=== PATIENT | female | born 1960 | race Caucasian/White ===

== ENCOUNTER 2018-05-01 12:25 | Emergency (ER) | payer OTHER ==
[2018-05-01] MEDS ORDERED: ETOMIDATE 20 MG/10 ML VIAL IV ONE (12:26)
[2018-05-01] MEDS ORDERED: AMIODARONE HCL 150 MG/3 ML INJ IV ONE (12:26)
[2018-05-01] MEDS ORDERED: LIDOCAINE 2% MPF 5 ML VIAL IV ONE (12:26)
[2018-05-01] MEDS ORDERED: Nicardipine/NS 25 MG/250 ML KIT IV ONE (12:40)
[2018-05-01 12:49] LABS: Absolute Lymphocytes (CBC) 5.5 K/uL (0.7-4.9); Absolute Monocytes 0.6 K/uL (0.1-1.3); Absolute Neutrophil 3.1 K/uL (1.8-8.0); Basophils % 0.8 % (0-1.3); Eosinophils % 1.2 % (0-4.4); Hematocrit 44.1 % (36.0-45.0); MCH 33.2 pg (27.0-35.0); MCV 95.9 fL (80-100); MPV 11.3 fL (7.6-11.3); Monocytes % 5.9 % (3.3-12.3)
--- NOTE | 2018-05-01 12:49 | RAD REPORT ---
EXAM DESCRIPTION: CT - Ct Stroke Brain Wo Cont - 05/01/2018 12:41 pm CLINICAL HISTORY: unresponsive<Reason For Exam>unresponsive Code stroke patient, unresponsive, intubated TECHNIQUE: Axial 5 millimeter thick images of the head were obtained without IV contrast. All CT scans are performed using dose optimization technique as appropriate and may include automated exposure control or mA/KV adjustment according to patient size. FINDINGS: A massive amount of acute subarachnoid hemorrhages present. There is a 2 centimeter focal hematoma along the medial margin of the right temporal lobe that could be intraparenchymal or part of hematoma related to aneurysm rupture. There is a very large amount of intraventricular blood present . Early obstructive changes are present with casting of the left lateral ventricle. The third ventric le and fourth ventricle are filled with blood. Basilar cisterns are all filled with subarachnoid hemo rrhage. Visualized portions of the mastoid air cells, paranasal sinuses, and orbits are unremarkable. Findings telephoned to the referring clinician 12:45 p.m.. IMPRESSION: Massive volume of acute subarachnoid hemorrhage. Large volume of intraventricular blood with early obstructive change.
[2018-05-01 12:55] LABS: Protime INR 1.31
--- NOTE | 2018-05-01 12:59 | EDPHYS ---
Physician Documentation [facility] Name: Lisa French Age: 57 yrs Sex: Female : 1960 Arrival Date: 05/01/2018 Time: 12:26 Bed 3 Private MD: ED Physician Mitchel Torre HPI: 05/01 12:42 This 57 yrs old Female presents to ER via Unassigned with complaints of rn unresponsive. 12:42 Onset: The symptoms/episode began/occurred at an unknown time. Associated signs and rn symptoms: Pertinent positives:. It is unknown whether or not the patient has had similar symptoms in the past. Per EMS and , patient fine earlier in day, went into bathroom, complained of SHAH behind right eye, cried for help, went to her, was unresponsive, per EMS, extremely hypertensive, but unresponsive. . Historical: - Allergies: 13:44 NONE; ss - Home Meds: 13:44 None [Active]; ss - PMHx: 13:44 Cirrhosis; Hepatitis; ss - PSHx: 13:44 Appendectomy; Cholecystectomy; Tubal ligation; liver biopsy; ss - Immunization history:: Adult Immunizations unknown. - Social history:: Smoking status: unknown. - Ebola Screening: : Unable to complete screening because. - Unable to obtain history due to: unresponsive. ROS: 12:42 Unable to obtain ROS due to altered mental status, obtunded state. rn Exam: 12:42 Constitutional: This is a well developed, well nourished patient, unresponsive, even rn to pain Head/Face: Normocephalic, atraumatic. Eyes: pupils 5mm, minimally reactive, equal Cardiovascular: tachycardic, regular, no murmur Respiratory: coarse bilateral breath sounds Abdomen/GI: soft, non-tender MS/ Extremity: Pulses equal, no cyanosis. Neuro: GCS 3, flaccid LUE/LLE/RLE, some tone in RUE, not responsive to pain. Vital Signs: 12:26 BP 177 / 107; Pulse 70; Resp 19; Pulse Ox 99% on Non-rebreather mask; ss 12:51 BP 206 / 95; Pulse 74; Resp 18 A; Pulse Ox 100% on ETT vent; ss 12:54 Temp 94.9; ss 12:57 BP 138 / 94; Pulse 90; Resp 18 A; Pulse Ox 97% on ETT vent; ss 13:08 Weight 68.04 kg; ss 13:26 BP 120 / 79; Pulse 75; Resp 18 A; Temp 95.9; Pulse Ox 99% on 60% FiO2 ETT vent; ss 13:29 Pulse 140 MON; sv 13:29 Pulse 140; sv 13:31 BP 131 / 74; Pulse 106; Resp 20; Pulse Ox 98% on ETT vent; sv 13:41 BP 93 / 62; Pulse 83; Resp 18 A; Pulse Ox 98% on ETT vent; ss 13:29 V tach sv 13:29 V tach sv 13:31 Sinus tachycardia sv 12:26 irregular respirations ss 12:54 corticore mg temp ss 13:08 weight is reported by . ss 13:29 Pt is Vtach at 1329 and 05 seconds. sv 13:29 Pt is Vtach at 1329 and 45 seconds. sv Procedures: 13:25 Intubation: Ventilated with 100% NRB prior to procedure. O2 saturation prior to mergers and acquisitions attorney was 97 %. Intubated orally using # 4 Radha blade with 7.5 mm ETT. was successful on first attempt. Cricoid pressure applied during procedure. Tube secured with ETT hanks at right side of mouth measured 23 cm at teeth. Placement verified by auscultating bilateral breath sounds, O2 saturation after procedure was 100 %. Patient tolerated well. Central Line: a triple lumen catheter was inserted, in the right femoral vein, in 1 attempts. placement was verified, by blood return, the patient tolerated the procedure, well. MDM: 12:37 Patient medically screened. rn 12:49 ED course: SAH with ventricular extension on ct head, calling for lifeflight and plaster pattern caster. Updated , erlinda started prior to CT head given concern for bleed, [place] ordered. . 12:57 Differential Diagnosis: hemorrhage. Data reviewed: vital signs, nurses notes, rn radiologic studies, CT scan, and as a result, I will admit patient. Counseling: I had a detailed discussion with the patient and/or guardian regarding: the historical points, exam findings, and any diagnostic results supporting the discharge/admit diagnosis, the need to transfer to another facility, for higher level of care, [facility] does not immediately have the required specialist. 05/01 12:32 Order name: Basic Metabolic Panel dm5 05/01 12:32 Order name: CBC with Diff [facility] 05/01 12:32 Order name: Ckmb [facility] 05/01 12:32 Order name: CPK [facility] 05/01 12:32 Order name: LFT's [facility] 05/01 12:32 Order name: Magnesium [facility] 05/01 12:32 Order name: NT PRO-BNP [facility] 05/01 12:32 Order name: PT-INR [facility] 05/01 12:32 Order name: Ptt, Activated [facility] 05/01 12:32 Order name: Troponin (emerg Dept Use Only) [facility] 05/01 12:32 Order name: ABG [facility] 05/01 12:38 Order name: Blood Culture Adult (2) 05/01 12:38 Order name: Procalcitonin 05/01 12:38 Order name: Lactate 05/01 12:35 Order name: CT Stroke Brain w/o Contrast; Complete Time: 12:51 [facility] 05/01 12:36 Order name: Stroke CXR 1 View [facility] 05/01 12:40 Order name: Glucose, Ancillary Testing; Complete Time: 12:41 [facility] 05/01 12:40 Order name: Acetaminophen 05/01 12:40 Order name: ETOH Level 05/01 12:40 Order name: Salicylate 05/01 12:40 Order name: Urine Drug Screen 05/01 12:53 Order name: CBC Smear Scan [facility] 05/01 13:30 Order name: Urine Dipstick--Ancillary (enter results) 05/01 12:32 Order name: EKG; Complete Time: 12:33 [facility] 05/01 12:32 Order name: Cardiac monitoring; Complete Time: 13:11 [facility] 05/01 12:32 Order name: EKG - Nurse/Tech; Complete Time: 13:00 [facility] 05/01 12:32 Order name: IV Saline Lock; Complete Time: 13:00 [facility] 05/01 12:32 Order name: Labs collected and sent; Complete Time: 13:00 [facility] 05/01 12:32 Order name: O2 Per Protocol; Complete Time: 13:00 [facility] 05/01 12:32 Order name: O2 Sat Monitoring; Complete Time: 13:00 [facility] 05/01 12:32 Order name: Urine Dipstick-Ancillary (obtain specimen); Complete Time: 13:11 [facility] 05/01 12:35 Order name: Accucheck; Complete Time: 13:00 dm5 05/01 12:35 Order name: Stroke Swallow Screen; Complete Time: 13:00 dm5 Administered Medications: Discontinued: Propofol 5 mcg/kg/min IV at calculated rate continuous; titrate per protocol (titrate by 5-10mcg/kg/min every 10 min to max rate of 50 mcg/kg/min) 12:27 Drug: Lidocaine 100 mg {Note: administration by Greta Zelaya RN.} Route: IVP; Site: ss right forearm; 13:30 Follow up: Response: No adverse reaction ss 12:32 Drug: Etomidate 20 mg {Note: Admin by Greta Armendariz RN.} Route: IVP; Site: right forearm; ss 13:05 Follow up: Response: No adverse reaction; Patient is sedated ss 12:32 Drug: Rocuronium 50 mg {Note: administered by Greta Zelaya RN.} Route: IVP; Site: ss right forearm; 12:40 Follow up: Response: Patient is sedated ss 12:44 Drug: Cardene 5 mg/hr Route: IV; Rate: calculated rate; Site: left antecubital; ss 13:00 Drug: Keppra 1000 mg Route: IV; Rate: 1 calculated rate; Site: left antecubital; ss 13:01 Drug: Decadron - Dexamethasone 10 mg Route: IVP; Site: right forearm; ss 13:05 Follow up: Response: No adverse reaction ss 13:14 Drug: Mannitol 25% 1 mg/kg {Note: administered by Deysi Villa RN [address] Torre.} Route: IV; Rate: per protocol; Site: right forearm; 14:08 Follow up: IV Status: Infusion continued upon transfer ss 13:31 Drug: amiodarone 150 mg Route: IVP; Site: right femoral; sv 13:35 Follow up: Response: No adverse reaction; Cardiac rhythm changed ss 13:33 Drug: Propofol 5 mcg/kg/min Route: IV; Rate: calculated rate; Site: right femoral; ss 13:45 Follow up: stopped infusion at 1345 ss 13:48 Drug: amiodarone 900 mg, D5W 500 ml Route: IVPB; Rate: 1 mg/min; Site: right femoral; ss 14:09 Follow up: IV Status: Infusion continued upon transfer Point of Care Testing: Blood Glucose: 12:30 Blood Glucose: 156 mg/dL; Ranges: Critical Glucose Levels:Adult <50 mg/dl or >400 mg/dl <40 mg/dl or >180 mg/dl Disposition: 12:57 Critical Care:. rn 12:59 Critical Care:. rn Disposition: 05/01/18 12:58 Transfer ordered to [facility]. Diagnosis are Subarachnoid hemorrhage, Altered mental status, unspecified. - Reason for transfer: Higher level of care. - Accepting physician is Dr. Figueroa. - Condition is Critical. - Problem is new. - Symptoms are unchanged. Critical care time excluding procedures: 12:59 Critical care time: Bedside Care: 25 minutes, Consultation: 5 minutes, Family rn Intervention: 5 minutes. Total time: 35 minutes Signatures: Dispatcher [employer] EDSD Heather Marinelli RN RN dmDayna Barragan RN RN Mitchel Torre MD MD rn Smirch, Shelby, RN RN ss Corrections: (The following items were deleted from the chart) 13:05 12:33 Chest Single View+RAD.RAD.BRZ ordered. [facility] EDSD 14:22 12:58 05/01/2018 12:58 Transfer ordered to [facility]. ss Diagnosis is Subarachnoid hemorrhage; Altered mental status, unspecified. Reason for transfer: Higher level of care. Accepting physician is Dr. Figueroa. Condition is Critical. Problem is new. Symptoms are unchanged. rn
--- NOTE | 2018-05-01 12:59 | ER ---
Nurse's Notes [facility] Name: Lsia French Age: 57 yrs Sex: Female : 1960 Arrival Date: 05/01/2018 Time: 12:26 Bed 3 Private MD: Diagnosis: Subarachnoid hemorrhage;Altered mental status, unspecified Presentation: 05/01 12:26 Presenting complaint: EMS states: Pt went to the restroom while at home, and was ss reportedly in there "for a while". Individual that was home with patient reportedly went to check on her and found her unresponsive and slumped over on toilet. Transition of care: patient was not received from another setting of care. Onset of symptoms was May 01, 2018. Risk Assessment: Do you want to hurt yourself or someone else? Patient reports no desire to harm self or others. Initial Sepsis Screen: Does the patient meet any 2 criteria? Altered Mental Status. Does the patient have a suspected source of infection? No. Patient's initial sepsis screen is negative. Care prior to arrival: IV initiated. 20 GA, in the right forearm, Glucose check: 156. 12:26 Method Of Arrival: EMS: [facility] 12:26 Acuity: JASWANT 1 ss Triage Assessment: 12:26 General: Appears uncomfortable, ill, Behavior is unresponsive. Neuro: Level of ss Consciousness is unresponsive. Respiratory: Airway NRB \\T\\ 15 L per min in plaCe by EMS Trachea midline Respiratory pattern is agonal. Derm: Skin is dry, Skin is pale. Historical: - Allergies: 13:44 NONE; ss - Home Meds: 13:44 None [Active]; ss - PMHx: 13:44 Cirrhosis; Hepatitis; ss - PSHx: 13:44 Appendectomy; Cholecystectomy; Tubal ligation; liver biopsy; ss - Immunization history:: Adult Immunizations unknown. - Social history:: Smoking status: unknown. - Ebola Screening: : Unable to complete screening because. - Unable to obtain history due to: unresponsive. Screenin:30 Abuse screen: unable to obtain. Nutritional screening: unable to obtain. Tuberculosis jl7 screening: unable to obtain. Fall Risk Total Billings Fall Scale indicates High Risk Score (45 or more points). Fall prevention measures have been instituted. Side Rails Up X 2 Placed Close to Nursing Station Frequent Obs/Assessments Occuring Family Present and informed to notify staff if the need to leave the bedside As available patient and family educated on Fall Prevention Program and Strategies. Assessment: 12:26 General: Appears distressed, ill, Behavior is. Pain: Unable to use pain scale. Patient ss is unresponsive. Neuro: Level of Consciousness is unresponsive, Oriented to none. Cardiovascular: Pulses are palpable in right radial artery, right posterior tibial artery, left radial artery and left posterior tibial artery Rhythm is sinus rhythm. Respiratory: Airway Respiratory pattern is agonal NRB in place on arrival by EMS at 15 L per minute Breath sounds are clear bilaterally. GI: Abdomen is flat, non-distended. EENT: Nares are clear Oral mucosa is dry. Derm: Skin is pink, warm \\T\\ dry. Musculoskeletal: Swelling absent. 12:30 General: Behavior is unresponsive. Pain: Unable to use pain scale. Patient is jl7 unresponsive. Neuro: Level of Consciousness is unresponsive, Pupils are non-reactive. Cardiovascular: Heart tones present Patient's skin is warm and dry. Respiratory: Airway is patent Respiratory effort is labored, Respiratory pattern is agonal. GI: Abdomen is flat, non-distended. 12:44 Reassessment: Pt back from CT at this time, Dr. Torre and multiple staff members at bedside. 12:54 Reassessment: Vipul Hugger blanket applied. Respiratory: Respiratory effort is even, ss unlabored, Respiratory pattern is regular, symmetrical, patient remains intubated on ventilator. 12:55 Reassessment: After gathering more information from patient's , he reports that ss patient had just returned from grocery shopping, was in the kitchen and he asked her a question and when he did she kind of mumbled and didn't make much sense. Patient then continued to say that she had an excruciating pain behind her L eye and just "became worse and was not good". reports that patient drinks between at least 1.5 to 2 bottles of wine at least daily. 13:00 Reassessment: Pt intubated, respirations even and unlabored, skin warm and dry. jl7 13:29 Reassessment: Rhythm change : VTACH, pulses present. Dr. Torre at bedside. 13:30 Reassessment: Pt remains intubated, respirations even and unlabored, skin warm and dry. jl7 14:00 Reassessment: Pt intubated, respirations even and unlabored, skin warm and dry. jl7 14:15 Reassessment: No changes from previously documented assessment. Neuro: Level of jl7 Consciousness is unresponsive. Cardiovascular: Pulses are palpable in right femoral artery, left femoral artery, left carotid pulse and right carotid pulse. Vital Signs: 12:26 BP 177 / 107; Pulse 70; Resp 19; Pulse Ox 99% on Non-rebreather mask; ss 12:51 BP 206 / 95; Pulse 74; Resp 18 A; Pulse Ox 100% on ETT vent; ss 12:54 Temp 94.9; ss 12:57 BP 138 / 94; Pulse 90; Resp 18 A; Pulse Ox 97% on ETT vent; ss 13:08 Weight 68.04 kg; ss 13:26 BP 120 / 79; Pulse 75; Resp 18 A; Temp 95.9; Pulse Ox 99% on 60% FiO2 ETT vent; ss 13:29 Pulse 140 MON; sv 13:29 Pulse 140; sv 13:31 BP 131 / 74; Pulse 106; Resp 20; Pulse Ox 98% on ETT vent; sv 13:41 BP 93 / 62; Pulse 83; Resp 18 A; Pulse Ox 98% on ETT vent; ss 13:29 V tach sv 13:29 V tach sv 13:31 Sinus tachycardia sv 12:26 irregular respirations ss 12:54 corticore mg temp ss 13:08 weight is reported by . ss 13:29 Pt is Vtach at 1329 and 05 seconds. sv 13:29 Pt is Vtach at 1329 and 45 seconds. sv ED Course: 12:26 Patient arrived in ED. jl7 12:28 Inserted saline lock: 20 gauge in left antecubital area, using aseptic technique. ss ,using aseptic technique. insertion by Heather Lee RN Blood collected. 12:28 Maintain EMS IV. Dressing intact. Good blood return noted. Site clean \\T\\ dry. Gauge \\T\\ ss site: 20 gauge in R FA. 12:30 Patient has correct armband on for positive identification. jl7 12:33 Assisted provider with intubation using 7.5 mm ETT via oral route. ET tube secured at ss 23cm at the teeth. Set up intubation tray. Intubated by Mitchel Torre MD Patient tolerated well. 12:35 Arm band placed on right wrist. ss 12:36 Brady Jackson NP is PHCP. pm1 12:36 Mitchel Torre MD is Attending Physician. pm1 12:42 CT Stroke Brain w/o Contrast In Process Unspecified. EDMS 12:50 EKG done, by ophthalmic tech. reviewed by Mitchel Torre MD. dt2 12:50 OG tube inserted, 12 Fr, verified placement by auscultation, gastric contents returned. ss 12:52 Mg cath inserted, using sterile technique, 16 Fr., by ED staff, balloon inflated, to ss gravity drainage, urine specimen collected. returned Corticore Mg inserted. 12:56 Triage completed. ss 13:04 Stroke CXR 1 View In Process Unspecified. EDMS 13:10 Urine collected: Mg catheter specimen, clear, Amount Returned: 100mL. dh3 13:20 Assisted provider with central line placement. Set up central line tray. Triple lumen jl7 line placed in right femoral. Line placed by Mitchel Torre MD Placement verified by blood return, Dressed with Tegaderm, Blood was collected. Patient tolerated pt unresponsive Before procedure, did Practitioner(s) obtain informed consent? No. Patient \\T\\ family education about procedure, CLABSI prevention and S/S of infection? No. Time-out/Briefing performed prior to start of procedure? Yes. Was handwashing/sanitizing done immediately prior to procedure? Yes. Was patient positioned to in a way to prevent air embolism? Yes. Was procedure site sterilized? Yes, with chlorhexidine. Was the site allowed to dry? Yes. Was local anesthetic and/or sedation utilized? No. During the procedure, did the Practitioner(s) maintain a sterile field? Yes. Were unused ports clamped during insertion? Yes. Was a 2nd qualified MD obtained after 3 unsuccessful insertion attempts? No. Was blood aspirated from each lumen? Yes. After the procedure, did the Practitioner(s) clean the site and apply a sterile dressing? Yes. 13:29 Assist provider with cardioversion (synchronized) with pads, for treatment of V tach sv with 150 joules X 1. Set up for procedure. Performed by Mitchel Torre MD Monitored with front desk monitor, pulse ox, Post procedure rhythm is unchanged. Assist provider with cardioversion (synchronized) with pads, for treatment of V tach with 200 joules X 1. Set up for procedure. Performed by Mitchel Torre MD Monitored with front desk monitor, pulse ox, Post procedure rhythm is unchanged. 13:30 Assist provider with cardioversion (synchronized) with pads, for treatment of V tach sv with 200 joules X 1. Set up for procedure. Performed by Mitchel Torre MD Monitored with front desk monitor, pulse ox, Post procedure rhythm is Sinus tach. 13:40 Notified ED physician of a critical lab result(s). K 2.9. dm5 13:50 Notified ED physician of a critical lab result(s). Lactate 5.1. dm5 14:00 Patient transferred, IV remains in place. ss 14:05 Brina Riley RN is Primary Nurse. jl7 14:30 One-on-one care X 120 minutes. jl7 Administered Medications: Discontinued: Propofol 5 mcg/kg/min IV at calculated rate continuous; titrate per protocol (titrate by 5-10mcg/kg/min every 10 min to max rate of 50 mcg/kg/min) 12:27 Drug: Lidocaine 100 mg {Note: administration by Greta Zelaya RN.} Route: IVP; Site: right forearm; 13:30 Follow up: Response: No adverse reaction 12:32 Drug: Etomidate 20 mg {Note: Admin by Greta Armendariz RN.} Route: IVP; Site: right forearm; ss 13:05 Follow up: Response: No adverse reaction; Patient is sedated 12:32 Drug: Rocuronium 50 mg {Note: administered by Greta Zelaya RN.} Route: IVP; Site: right forearm; 12:40 Follow up: Response: Patient is sedated 12:44 Drug: Cardene 5 mg/hr Route: IV; Rate: calculated rate; Site: left antecubital; ss 13:00 Drug: Keppra 1000 mg Route: IV; Rate: 1 calculated rate; Site: left antecubital; ss 13:01 Drug: Decadron - Dexamethasone 10 mg Route: IVP; Site: right forearm; ss 13:05 Follow up: Response: No adverse reaction 13:14 Drug: Mannitol 25% 1 mg/kg {Note: administered by Deysi Villa RN [address] Torre[address] Route: IV; Rate: per protocol; Site: right forearm; 14:08 Follow up: IV Status: Infusion continued upon transfer ss 13:31 Drug: amiodarone 150 mg Route: IVP; Site: right femoral; sv 13:35 Follow up: Response: No adverse reaction; Cardiac rhythm changed ss 13:33 Drug: Propofol 5 mcg/kg/min Route: IV; Rate: calculated rate; Site: right femoral; ss 13:45 Follow up: stopped infusion at 1345 ss 13:48 Drug: amiodarone 900 mg, D5W 500 ml Route: IVPB; Rate: 1 mg/min; Site: right femoral; ss 14:09 Follow up: IV Status: Infusion continued upon transfer Point of Care Testing: Blood Glucose: 12:30 Blood Glucose: 156 mg/dL; ss Ranges: Intake: Outcome: 12:58 ER care complete, transfer ordered by . rn 14:00 Transferred by ground EMS to [facility]. ss 14:00 critical 14:00 Instructed on instructed to need for transport. 14:22 Patient left the ED. Signatures: Dispatcher [employer] Heather Jaramillo RN RN dmDayna Barragan RN Mitchel Jackson MD MD rn Smirch, Shelby, RN RN rBady Jackson, BESSEMER CONVERTER OPERATOR BESSEMER CONVERTER OPERATOR pm1 Brina Riley RN RN jl7 Katy Rios 3 Noemy Bunn dt2 Corrections: (The following items were deleted from the chart) 12:51 12:26 BP 206 / 95; Pulse 74bpm; Resp 18bpm; Assisted; Pulse Ox 100% ET / Ventilator; ss 13:19 13:14 Mannitol 25% 1 mg/kg IV at per protocol in right forearm ss ss
[2018-05-01] MEDS ORDERED: levETIRAcetam 1,000 MG in NA CHLORIDE 0.9% 100 ML IV ONE (13:00)
[2018-05-01] MEDS ORDERED: DEXAMETHASONE 4 MG/ML VIAL ONE (13:02)
[2018-05-01] MEDS ORDERED: MANNITOL 25% 0 ML IV ONE (13:03)
[2018-05-01 13:16] LABS: Arterial Blood Carboxyhemoglob 2.8 % (0-1.5); Blood Gas Oxyhemoglobin 95.8 % (94-97); Blood O2 Saturation 99.5 % (92-98.5)
[2018-05-01 13:17] LABS: Blood Morphology Comment NOT SEEN (NOT SEEN); Platelet Estimate DECR; Urine White Blood Cell Casts OK
[2018-05-01 13:20] LABS: Albumin 3.6 g/dL (3.4-5.0); Bilirubin Direct 0.8 mg/dL (0-0.2); CKMB Creatine Kinase MB 1.9 ng/mL (0.3-3.6); Magnesium 1.8 mg/dL (1.8-2.4); Protein, Total 7.5 g/dL (6.4-8.2)
[2018-05-01 13:22] LABS: Alcohol Serum/Plasma 11 mg/dL (<3)
[2018-05-01 13:24] LABS: Potassium 2.9 mmol/L (3.5-5.1)
--- NOTE | 2018-05-01 13:28 | RAD REPORT ---
EXAM DESCRIPTION: RAD - Chest Single View - 05/01/2018 1:04 pm CLINICAL HISTORY: unresponsive<Reason For Exam>unresponsive Code stroke, unresponsive COMPARISON: Chest Pa And Lat (2 Views) dated 06/21/2017; Chest Single View dated 07/31/2016; CHEST S KALI VIEW dated 05/07/2015; CHEST SINGLE VIEW dated 10/17/2013<Comparisons> TECHNIQUE: AP portable chest image was obtained 1248 hours . FINDINGS: Endotracheal tube tip is mid aortic arch T5 level. NG tube is curled in the stomach. Tip i s near the GE junction. Resuscitation paddles overlie the chest. No pulmonary edema or acute lung par enchymal process. Heart and vasculature are normal. No measurable pleural effusion and no pneumothora x. Thoracic spine scoliosis noted. No acute aortic findings suspected. IMPRESSION: Endotracheal tube and NG tube in good position. No cardiomegaly, pulmonary edema or other emergent chest finding.
[2018-05-01 13:29] LABS: Barbiturates NEGATIVE (NEGATIVE); Benzodiazepines NEGATIVE (NEGATIVE); Cocaine NEGATIVE (NEGATIVE); METHAMPHETAM NEGATIVE (NEGATIVE); Methadone NEGATIVE (NEGATIVE); Opiates NEGATIVE (NEGATIVE); Phencyclidine NEGATIVE (NEGATIVE); THC Cannibis NEGATIVE (NEGATIVE)
[2018-05-01 13:34] LABS: Urine Blood 3+ (NEG); Urine Glucose TRACE (NEG); Urine Protein TRACE (NEG); Urine Specific Gravity 1.025 (1.005-1.030); Urine pH 5.5 (5.0-7.0)
[2018-05-01] MEDS ORDERED: MANNITOL 20% 500 ML BAG IV ONE (13:36)
[2018-05-01] MEDS ORDERED: AMIODARONE IN DEXTROSE,ISO-OSM 360 MG/200 ML BAG IV ONE (13:37)
[2018-05-01] MEDS ORDERED: MAGNESIUM SULFATE 1 gm IVPB 1 GM/100 ML BAG IV ONE (13:37)
[2018-05-01] MEDS ORDERED: AMIODARONE HCL 450 MG in D5W 241 ML IV ONE (13:45)
[2018-05-01 14:32] VITALS: TEMP 95.9
[2018-05-01 14:34] VITALS: O2SAT 98
[2018-05-01 14:35] VITALS: BP 93/62
[2018-05-01] MEDS ORDERED: RSI MEDICATION KIT IV ONE (15:38)
--- NOTE | 2018-05-01 16:15 | EKG ---
Test Date: 2018-05-01 Test Time: 13:27:01 [employer] [facility]: MEASUREMENT RESULTS: Intervals: Rate: 144 PA: QRSD: 132 QT: 370 QTc: 572 Irene: P: PA: QRS: 40 T: 172 INTERPRETIVE STATEMENTS: Undetermined rhythm Left bundle branch block Abnormal ECG Compared to ECG 05/01/2018 12:28:33 Left bundle-branch block now present Sinus rhythm no longer present Atrial premature complex(es) no longer present Myocardial infarct finding no longer present Electronically Signed On 05-01-18 16:14:21 CDT by Ever Peña
--- NOTE | 2018-05-01 16:15 | EKG ---
Test Date: 2018-05-01 Test Time: 12:28:33 [employer]ist: MEASUREMENT RESULTS: Intervals: Rate: 75 LA: 138 QRSD: 78 QT: 446 QTc: 498 [place]: P: 28 LA: 138 QRS: 13 T: 60 INTERPRETIVE STATEMENTS: Sinus rhythm with premature atrial complexes Septal infarct, age undetermined Abnormal ECG Compared to ECG 07/31/2016 07:50:47 Atrial premature complex(es) now present Myocardial infarct finding still present Electronically Signed On 05-01-18 16:14:24 CDT by Ever Peña
== END 2018-05-01 14:22 | disposition short-term general hospital (02) ==
LOC: ER 12:25
PROC: 0BH17EZ Insertion of Endotracheal Airway into Trachea, Via Natural or Artificial Opening (ICD-10-PCS; principal; 2018-05-01)
DX: I60.9 Nontraumatic subarachnoid hemorrhage, unspecified (principal); R41.82 Altered mental status, unspecified
CPT/HCPCS: 31500; 36415; 51702; 70450; 71045; 80048; 80076; 80307; 80320; 80329; 81003; 82550; 82553; 82805; 82962; 83605; 83735; 83880; 84145; 84484; 85025; 85610; 85730; 87040; 92960; 93005; 94002; 99291; J0282; J1953; J2150; J3475; J7060